=== PATIENT | male | born 1950 | race Caucasian/White ===

== ENCOUNTER 2020-08-07 08:00 | Outpatient (RCR) | payer MEDICARE, SELFPAY ==
[2020-08-07] MEDS: COVID-19 VACC, MRNA(PFIZER)/PF 30 MCG/0.3 ML SYRINGE IM (12:49)
[2020-08-28] MEDS: COVID-19 VACC, MRNA(PFIZER)/PF 30 MCG/0.3 ML SYRINGE IM (09:34)
== END 2020-11-06 23:59 ==
LOC: IMMUN 08:00
PROVIDERS: PCP Family Medicine; Visit Provider Family Medicine
DX: Z23 Encounter for immunization (principal)
CPT/HCPCS: 0001A; 0002A; 91300

== ENCOUNTER 2022-11-26 16:51 | Emergency (ER) | payer MEDICARE, SELFPAY ==
[2022-11-26 16:52] VITALS: BP 134/78; PULSE 64; RESP 14; TEMP 36.6; O2SAT 99; BMI 28.9
[2022-11-26] MEDS: Lidocaine 1% (20 ml mdv) 20 ML Vial INFILT (18:08)
--- NOTE | 2022-11-26 18:54 | EDS_ITS ---
HPI History of Present Illness Chief Complaint: Abscess Detail of Chief Complaint: Full read nodule inner aspect proximal medial right thigh Informant: patient Onset/Context/Timing Onset: Today Context: Sudden Onset Timing: Continuous Quality: Abscess Location: Near right inguinal area Current Severity: Mild Maximum Severity: Mild Worsened by: Suspect due to diabetes Relieved by: Nothing Associated Symptoms Associated Symptoms: None Narrative Narrative: Patient is a 72-year-old male with history of type 2 diabetes on metformin. He states this morning he noted a red painful bump lateral his scrotum. Patient states his last A1c was 6.1. His last blood sugar was 121. He denies fever, chills night sweats. He denies dysuria, frequency, urgency or hematuria. He denies scrotal swelling or pain. He denies prior history of abscess. He was unaware that he had a monilia infection. Prior similar symptoms: No Recent Illness/Hospitalization: No PFSH PFSH Home Medications clindamycin HCl 300 mg capsule (Cleocin HCl) 300 mg PO Q6H #20 CAPSULES 11/26/22 [Rx Last Taken Unknown] Allergy/AdvReac Type Severity Reaction Status Date / Time Penicillins Allergy Mild Rash Verified 11/26/22 16:55 Sulfa (Sulfonamide Allergy Mild RASH Verified 11/26/22 16:55 Antibiotics) Social History (Updated 11/26/22 @ 18:[address] Venancio Brenner MD) household members: spouse Smoking Status: Never smoker substance use type: does not use ROS ROS ED Constitutional Constitutional ED: Denies chills, fever(s), subjective, sweats or weight loss Eyes Eyes: Denies blurry vision or change in vision Gastrointestinal Gastrointestinal: Denies nausea or vomiting Genitourinary Genitourinary ED: Denies dysuria, hematuria or urinary frequency Musculoskeletal Musculoskeletal: Denies arthralgias, back pain or myalgias Integumentary Reports abscess and rash Endocrine Endocrinology: Denies cold intolerance or heat intolerance Hematologic/Lymphatic Hematologic/Lymphatic: Reports systems reviewed and no addt'l complaints, except as documented and other Details: Patient is now on an anticoagulant EXAM Physical Exam Const Vital Signs: 11/26/22 16:52 Temperature 97.8 F Temperature Source Temporal Pulse Rate 64 Respiratory Rate 14 Blood Pressure 134/78 H Blood Pressure Mean 96 Pulse Ox 99 Oxygen Delivery Method Room Air Positive well nourished and well developed General Appearance ED: well developed and NAD; Negative for cyanotic or d iaphoretic HEENT Reports moist mucous membranes HEENT Narrative: Head is atraumatic normocephalic. Ears normal. Nares patent. Mucosa. Eyes PERRL and EOMs intact bilaterally General Eye ED: Negative for pale conjunctiva or scleral icterus Neck no lymphadenopathy, supple and no JVD Resp normal respiratory effort and clear to auscultation bilaterally Cardio regular rate, regular rhythm, S1 normal heart sound, S2 normal heart sound and no murmurs GI normal to inspection, nondistended, normoactive bowel sounds, non-tender and non-distended; Negative for hepatosplenomegaly Narrative: Circumcised male penis without lesion or discharge. No scrotal swelling, erythema at the chart Extremity Extremity Narrative: Patient has a abscess with surrounding cellulitis inferior to the inguinal crease on the medial proximal aspect of the right thigh. Area involvement is 3 cm. Neuro oriented x3, CN's II-XII intact bilaterally and no sensory deficits noted Sensorium / Orientation: alert Psych mental status grossly normal Skin Skin Narrative: Abscess and cellulitis as previously described [facility] [place] Narrative Medical decision making narrative: PTT was obtained since he is diabetic. Patient was consented for I&D of medial proximal right thigh abscess. Patient was prepped draped sterile manner. The area was Nestabs by local infiltration and field block. Incision was made with a 10 blade. There was free flow of 3 to 5 cc of purulent material. Blunt dissection was undertaken. There is a cavity approximately 4 cm in size. Cavity was irrigated. Wick was placed. Patient received first dose of clindamycin in the emergency department. Patient informed because his insurance is an HMO from [place] he has coverage coming to the emergency room but not to a PCP. We will have patient return in 2 to 3 days to have wick removed and reevaluation of his wound. Patient was placed on clindamycin since he has allergy to penicillin and allergy to sulfa. History & Record Review Discussion w/independent historian: Patient and Significant other Procedures Other Procedures Procedure(s): I&D subcutaneous abscess medial proximal right thigh as described under the MDM portion of the chart. Discharge Plan Triage Chief Complaint: Abscess ED Provider: Venancio Brenner Dx/Rx/DC Orders Clinical Impression: Type 2 diabetes mellitus, Cellulitis and abscess of right lower extremity Instructions: ED Abscess Incision And Drainage, ED Cellulitis Prescriptions: New clindamycin HCl [Cleocin HCl] 300 mg capsule 300 mg PO Q6H Qty: 20 0RF Primary Care Provider: Care Physician,No Primary Referrals: Care Physician,No Primary [Primary Care Provider] - Activity Restrictions/Additional Instructions: Return to the emergency room for wound check and removal of wick in 2 to 3 days. Disposition Disposition: Home, Self Care
--- NOTE | 2022-11-26 20:28 | ED.RN ---
pt called in stating the pharmacy was closed and he never received his dose of antibiotics before he left. No antibiotics ordered. This nurse talked to Dr. Jordin ROSA to have pt come back and give Clindamycin 300mg x1Pt. 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
[2022-11-26] MEDS: Clindamycin HCl 150 MG Capsule 300 MG PO (21:39)
== END 2022-11-26 19:31 | disposition home or self-care (01) ==
PROVIDERS: Emergency Provider Emergency Medicine; Visit Provider Emergency Medicine
DX: L02.415 Cutaneous abscess of right lower limb (principal); E11.9 Type 2 diabetes mellitus without complications; L03.115 Cellulitis of right lower limb; Z79.84 Long term (current) use of oral hypoglycemic drugs
CPT/HCPCS: 10060; 99283

== ENCOUNTER 2022-11-28 13:19 | Emergency (ER) | payer MEDICARE, SELFPAY ==
[2022-11-28 13:20] VITALS: BP 142/93; PULSE 106; RESP 18; TEMP 35.8; O2SAT 98; BMI 29.2
--- NOTE | 2022-11-28 13:43 | EX.ED.DYSGE1 ---
HPI <HERMILA Chen - Last Filed: 11/28/22 13:48> History of Present Illness Chief Complaint: Wound Check Narrative Narrative: Patient is a 72-year-old male with history of type 2 diabetes who presents to the emergency department for reevaluation of a wound to his right perineal area. Patient was seen here 2 days ago, when he had an abscess to the right upper leg in his perineum. He had a 1 cm incision and packing placed by ER physician. Patient has been taking his antibiotics, he states he feels well and is here to have the packing removed. He denies any other complication. PFSH <HERMILA Chen - Last Filed: 11/28/22 13:48> [facility] Home Medications clindamycin HCl 300 mg capsule (Cleocin HCl) 300 mg PO Q6H #20 CAPSULES 11/26/22 [Rx Last Taken Unknown] Allergy/AdvReac Type Severity Reaction Status Date / Time Penicillins Allergy Mild Rash Verified 11/28/22 13:22 Sulfa (Sulfonamide Allergy Mild RASH Verified 11/28/22 13:22 Antibiotics) Social History (Updated 11/26/22 @ 18:[address] Venancio Brenner MD) household members: spouse Smoking Status: Never smoker substance use type: does not use ROS <HERMILA Chen - Last Filed: 11/28/22 13:48> ROS ED ROS Narrative Constitutional: Negative for fever, chills, weight loss, weakness Eyes: Negative for vision loss, vision change, double vision ENT: Negative for any sore throat, ear pain, congestion Cardiovascular: Negative for any chest pain, tightness, palpitations Respiratory: Negative for any cough, sputum production, hemoptysis, dyspnea, dyspnea on exertion, orthopnea Gastrointestinal: Negative for any abdominal pain, nausea, vomiting, diarrhea, constipation, blood in stool, blood in vomit : Negative for any urinary frequency, dysuria, retention, blood in urine Muscle skeletal: Negative for any muscle joint pain, stiffness, myalgias, arthralgias, neck pain, back pain Neurological: Negative for any headache, syncope, numbness or tingling, dizziness Skin: Negative for any rashes, lumps, itching, abrasions, lacerations. Positive for history of abscess to the right upper leg, perineum area Psychiatric: Negative for any depression, anxiety, stress, suicidal ideation, homicidal ideation Hematologic: Negative for any easy bruising, excessive bruising, easy bleeding Allergies: Negative for any eczema, hives, rash EXAM <HERMILA Chen - Last Filed: 11/28/22 13:48> Physical Exam Narrative Exam Narrative: Vital signs reviewed. HEET: Head normocephalic atraumatic, TMs clear bilaterally. Posterior pharynx is clear, moist mucous membranes. Nares clear bilaterally. Neck: Supple with no lymphadenopathy or tenderness. No signs of meningismus, negative jolt sign. Cardiac: Regular rate and rhythm no murmurs gallops or rubs, equal peripheral pulses bilaterally. Respiratory: Lungs clear to auscultation bilaterally. No chest tenderness. Abdomen: Soft, nontender, nondistended. No abdominal bruit or pulsatile masses. No hepatosplenomegaly Extremities: No peripheral edema, no signs of gross trauma or deformity. Active full range of motion of all extremities. Neuro: Cranial nerves II through XII intact, no focal neurological deficits. Skin: Clean dry and intact with no rash, purpura, petechiae, vesicles or pustules. Patient to the right groin is slight bruising, there was packing placed to the right upper leg, groin, perineum area I was able to remove roughly 5 cm of packing, patient tolerated well. There is no gross drainage. The wound appears to be well-healing, there is less induration. Patient is tolerating well. Backs/flank: No CVA tenderness, no midline spinal tenderness, no deformity. Psych: Normal mood and affect. No SI, HI or acute psychosis. Const Vital Signs: 11/28/22 13:20 Temperature 96.5 F L Temperature Source Temporal Pulse Rate 106 H Respiratory Rate 18 Blood Pressure 142/93 H Blood Pressure Mean 109 Pulse Ox 98 Oxygen Delivery Method Room Air Positive well nourished and well developed General Appearance ED: well developed <Dr. Benigno Hernandez MD - Last Filed: 11/28/22 13:53> Physical Exam Const Vital Signs: 11/28/22 13:20 Temperature 96.5 F L Temperature Source Temporal Pulse Rate 106 H Respiratory Rate 18 Blood Pressure 142/93 H Blood Pressure Mean 109 Pulse Ox 98 Oxygen Delivery Method Room Air MDM <HERMILA Chen - Last Filed: 11/28/22 13:48> [facility] Treatment and Re-Evaluation :: Patient appears generally well, patient appears nontoxic, vital signs are stable. Patient presents to the emergency department for wound reevaluation as well as the removal of packing from his right groin wound. Physical examination was grossly unremarkable, the abscess appears to be healing, all of the packing was taken out and the patient tolerated well. He still has multiple days of clindamycin which she will continue. He has no complaints of fever or chills and states he feels generally well. He is instructed to return for any worsening symptoms. He is continuing to use warm compresses, sitz bath's. He will follow-up closely for any other complications. <Dr. Benigno Hernandez MD - Last Filed: 11/28/22 13:53> [facility] Narrative Medical decision making narrative: I have personally performed a face to face assessment of the patient and have reviewed the MOHAMUD Note. I performed a substantive portion of the visit including all aspects of the following. My arroyo findings include: History is [72-year-old status post incision and drainage of right groin abscess. Return to have the packing removed. Doing well.] Exam is [lungs clear. Heart regular rhythm. Abdomen soft nontender. Right groin incision and drainage. Packing already removed by our [employer]. Small bruising. Clinically looks well. No abscess. No cellulitis. Uridom] Medical Decision Making [discharged home to continue his antibiotic.] Other additions or changes: [None] Discharge Plan Triage Chief Complaint: Wound Check ED Midlevel Provider: Nigel Jain ED Provider: Benigno Hernandez Dx/Rx/DC Orders Clinical Impression: Wound check, abscess Instructions: ED Wound Care After Packing ..., ED Wound Care Prescriptions: No Action clindamycin HCl [Cleocin HCl] 300 mg capsule 300 mg PO Q6H Qty: 20 0RF Primary Care Provider: Care Physician,No Primary Referrals: Care Physician,No Primary [Primary Care Provider] - Activity Restrictions/Additional Instructions: You may continue to use sitz bath, warm compresses. Disposition Disposition: Home, Self Care
[2022-11-28 13:54] VITALS: RESP 18
== END 2022-11-28 14:03 | disposition home or self-care (01) ==
LOC: ED 13:58
PROVIDERS: Emergency Provider Emergency Medicine; Visit Provider Emergency Medicine
DX: Z48.00 Encounter for change or removal of nonsurgical wound dressing (principal); E11.9 Type 2 diabetes mellitus without complications; L02.214 Cutaneous abscess of groin
CPT/HCPCS: 99282